=== PATIENT | male | born 1960 | race Caucasian/White ===

== ENCOUNTER 2017-09-17 05:27 | Emergency (ER) | payer OTHER ==
[~2017-09-17] VITALS: Ht 175.3 cm; Wt 90.2 kg
[~2017-09-17 05:27] MED LIST: ASPIRIN EC325 MG PO; CELECOXIB200 MG PO; CIPRO500 MG PO; DOK PLUS TABLE1 EACH PO; HYDROCODON-ACE1 EAC7 PO; IRON325 M1 PO; LIPITOR20 MG PO; LOW DOSE ASPIRI81 M1 PO; ROBITUSSIN AC,T10 ML PO; ULTRAM50 MG PO; VIBRAMYCIN100 MG PO
[2017-09-17 07:34] LABS: HEMATOCRIT 45.1 % (38.0-50.0); MCH 30.2 PG (29.0-34.0); MCHC 34.6 G/DL (30.0-36.0); MCV 87.4 FL (86-99); MEAN PLAT.VOLUME 10.5 uM^3 (9.0-12.4); PLATELET COUNT 187 K/uL (156-360); RBC DIS.WIDTH-SD 41.8 % (39-53); RED BLOOD COUNT 5.16 M/uL (4.00-5.50); WHITE BLOOD COUNT 9.9 K/uL (4.1-10.2)
[2017-09-17 08:00] LABS: ANION GAP 6 MEQ/L (2-14); CHLORIDE 101 MEQ/L (99-109); POTASSIUM 4.4 MEQ/L (3.7-5.4); SAMPLE HEMOLYSIS CHECK 0; SAMPLE ICTERIC CHECK 0; SAMPLE LIPEMIA CHECK 0; SODIUM 138 MEQ/L (136-147)
[2017-09-17 08:05] LABS: GFR ESTIMATE (CALCULATED) > 59 mL/min/; GLUCOSE 104 mg/dL (70-99); UREA NITROGEN (BUN) 13 mg/dL (9-23)
[2017-09-17 08:10] LABS: TROP-I INTERPRETATION NEGATIVE; TROPONIN-I < 0.01 ng/mL (0.0-0.30)
[2017-09-17 09:53] LABS: TROP-I INTERPRETATION NEGATIVE; TROPONIN-I < 0.01 ng/mL (0.0-0.30)
[2017-09-17] MEDS ORDERED: PERCOCET 5/31 TABLET PO (10:31)
[2017-09-17 10:43] VITALS: BP 130/81
== END 2017-09-17 10:44 | disposition home or self-care (01) ==
LOC: EME 05:27
PROVIDERS: Emergency Medicine
DX: M54.12 Radiculopathy, cervical region (principal); M79.601 Pain in right arm; R53.1 Weakness; R11.0 Nausea; R51 Headache; F17.200 Nicotine dependence, unspecified, uncomplicated
CPT/HCPCS: 71020; 80048; 84484; 85027; 93005; 99281; 99284

== ENCOUNTER 2018-02-13 17:32 | Emergency (ER) | payer OTHER ==
[~2018-02-13] VITALS: Ht 175.3 cm; Wt 93.7 kg
[~2018-02-13 17:32] MED LIST changes: +PERCOCET 5/31 TABLET PO
[2018-02-13] MEDS ORDERED: PERCOCET 5/31 TABLET PO (19:40)
[2018-02-13] MEDS ORDERED: FLEXERIL10 MG PO (19:40)
[2018-02-13] MEDS ORDERED: ULTRAM50 MG PO (19:52)
[2018-02-13 20:42] VITALS: BP 126/92
== END 2018-02-13 20:43 | disposition home or self-care (01) ==
LOC: EME 17:32
DX: M54.12 Radiculopathy, cervical region (principal); Z88.0 Allergy status to penicillin
CPT/HCPCS: 99281; 99284; J1100

== ENCOUNTER → 2018-03-31 | Outpatient (CLI) | payer OTHER ==
[~2018-03-31] VITALS: Ht 175.3 cm; Wt 92.9 kg
[~2018-03-31] MED LIST changes: +FLEXERIL10 MG PO
[2018-03-31 09:05] VITALS: BP 141/87
== END | disposition home or self-care (01) ==
LOC: OPR 08:27
DX: M47.892 Other spondylosis, cervical region (principal); M50.31 Other cervical disc degeneration, high cervical region; G47.30 Sleep apnea, unspecified; E78.5 Hyperlipidemia, unspecified; Z88.6 Allergy status to analgesic agent
CPT/HCPCS: 72156; J2250